=== PATIENT | female | born 1960 | race African-American/Black ===

== ENCOUNTER 2016-12-31 06:37 | Emergency (ER) | payer OTHER ==
[2016-12-31 07:18] VITALS: TEMP 98; BMI 23.7
[2016-12-31] MEDS ORDERED: KETOROLAC TROMETHAMINE 60 MG/2 ML VIAL IM ONE (07:31)
[2016-12-31] MEDS ORDERED: KETOROLAC TROMETHAMINE 60 MG/2 ML VIAL ONE (07:44)
--- NOTE | 2016-12-31 08:17 | PDOC ---
History of Present Illness - General Chief Complaint: Pain Stated Complaint: PAIN IN RIGHT FOOT Time Seen by Provider: 12/31/16 07:18 History Source: Patient Exam Limitations: No Limitations - History of Present Illness Initial Comments: 12/31/16 08:17 56-year-old female with complaints of right calf and right posterior or thigh pain for the past 2 weeks worsened with ambulation. 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 Patient states has no history of blood clots, recent surgeries, smoking history , recent travel, or skin discoloration. Patient also denies lower extremity edema or recent injury to the affected area. patient has no complaints of cough or shortness of breath. Timing/Duration: intermittent Severity: moderate Associated Symptoms: reports: denies symptoms Past History - Past Medical History Allergies/Adverse Reactions: Allergies Allergy/AdvReac Type Severity Reaction Status Date / Time No Known Allergies Allergy Verified 12/31/16 07:07 Home Medications: Ambulatory Orders Ciprofloxacin [Cipro (Restricted To Id)] 500 mg PO Q12H 11/03/15 Ibuprofen [Motrin -] 400 mg PO QID PRN #28 tablet 11/03/15 - Immunization History Immunization Up to Date: Yes - Psycho/Social/Smoking Cessation Hx Anxiety: No Suicidal Ideation: No Smoking Status: No Smoking History: Never smoked Have you smoked in the past 12 months: No Number of Cigarettes Smoked Daily: 0 Information on smoking cessation initiated: No Hx Alcohol Use: No Drug/Substance Use Hx: No Substance Use Type: None Patient Lives Alone: No Lives with/in: spouse/SO Review of Systems - Review of Systems Able to Perform ROS?: Yes Constitutional: No: Symptoms Reported Respiratory: No: Symptoms reported Musculoskeletal: Yes: Muscle Pain. No: Joint Pain, Joint Swelling Integumentary: No: Symptoms Reported Neurological: No: Symptoms reported Hematologic/Lymphatic: No: Symptoms Reported *Physical Exam - Vital Signs Last Vital Signs Temp Pulse Resp BP Pulse Ox 98 F 62 18 131/75 99 12/31/16 07:07 12/31/16 07:07 12/31/16 07:07 12/31/16 07:07 12/31/16 07:07 - Physical Exam General Appearance: Yes: Nourished, Appropriately Dressed. No: Apparent Distress HEENT: positive: EOMI Respiratory/Chest: positive: Lungs Clear, Normal Breath Sounds. negative: Respiratory Distress, Accessory Muscle Use Cardiovascular: positive: Regular Rhythm, Regular Rate. negative: Murmur Musculoskeletal: negative: Vertebral Tenderness Extremity: positive: Normal Capillary Refill, Normal Inspection, Normal Range of Motion, Tender (posterior calf, posterior patella, and right hamstring. No palpable mass. No edema no deformity. ), Calf Tenderness (positive Homans). negative: Erythema Integumentary: positive: Normal Color, Warm, Moist. negative: Swelling, Ecchymosis Neurologic: positive: Motor Strength 5/5 (ambulatory with limp) ED Treatment Course - RADIOLOGY Radiology Studies Ordered: Category Date Time Status DUPLEX VASCUL US-1 LEG [US] Stat Ultrasound 12/31/16 07:31 Ordered - Medications Given in the ED: ED Medications Discontinued Medications Generic Name Dose Route Start Last Admin Trade Name Freq PRN Reason Stop Dose Admin Ketorolac Tromethamine 60 mg 12/31/16 07:31 12/31/16 07:48 Toradol Injection - IM 12/31/16 07:32 60 mg ONCE ONE Administration Medical Decision Making - Medical Decision Making 12/31/16 08:00 Patient with intermittent right leg pain mainly in the posterior aspect of her calf and hamstring. Patient has not taken anything for the above and states is worse with ambulation but denies any other complaints at this time. Patient was PERC negative. Patient was ordered for Toradol and a duplex of the lower extremity due to positive Homans sign . 12/31/16 09:54 DVT study negative. States feeling moderate relief with medicine. Patient will be recommended to follow-up with her PCP to consider further management. Otherwise patient may take Motrin and apply heat to the affected area. *DC/Admit/Observation/Transfer Diagnosis at time of Disposition: Pain of right lower extremity - Discharge Dispostion Disposition: HOME Condition at time of disposition: Good - Patient Instructions Printed Discharge Instructions: DI for Leg Pain, DI for Muscle Strain Additional Instructions: Please take Motrin 600 Milligrams every 8 hours for discomfort and apply heat to the affected area. Please up with her PCP to consider other options if pain continues. The ultrasound today was negative for DVT or acute findings - Post Discharge Activity Work/School Note: Back to Work
[2016-12-31 10:26] VITALS: BP 128/76; PULSE 67
== END 2016-12-31 10:30 | disposition home or self-care (01) ==
LOC: JER 06:37
PROC: 3E0233Z Introduction of Anti-inflammatory into Muscle, Percutaneous Approach (ICD-10-PCS; principal; 2016-12-31)
DX: M79.604 Pain in right leg (principal)
CPT/HCPCS: 93971-TC; 99282-25

== ENCOUNTER 2019-12-01 09:09 | Emergency (ER) | payer OTHER ==
[2019-12-01 09:29] VITALS: BP 171/84; PULSE 69; TEMP 98.1; BMI 25.1
[2019-12-01] MEDS ORDERED: IBUPROFEN 600 MG TABLET (FP) PO ONE (10:11)
--- NOTE | 2019-12-01 10:42 | PDOC ---
History of Present Illness - General Chief Complaint: Cold Symptoms Stated Complaint: COLD SYMPTOMS Time Seen by Provider: 12/01/19 09:30 History Source: Patient Exam Limitations: No Limitations Past History - Travel Traveled outside of the country in the last 30 days: No Close contact w/someone who was outside of country & ill: No - Past Medical History Allergies/Adverse Reactions: Allergies Allergy/AdvReac Type Severity Reaction Status Date / Time No Known Allergies Allergy Verified 12/31/16 07:07 Home Medications: Ambulatory Orders Ciprofloxacin [Cipro (Restricted To Id)] 500 mg PO Q12H 11/03/15 Ibuprofen [Motrin -] 400 mg PO QID PRN #28 tablet 11/03/15 Ipratropium [place] 30 ml NS BID #1 bottle 12/01/19 Pseudoephedrine HCl 30 mg PO Q6H #21 tablet 12/01/19 COPD: No Thyroid Disease: No - Immunization History Immunization Up to Date: Yes - Psycho Social/Smoking Cessation Hx Smoking Status: No Smoking History: Never smoked Have you smoked in the past 12 months: No Number of Cigarettes Smoked Daily: 0 Information on smoking cessation initiated: No Hx Alcohol Use: No Drug/Substance Use Hx: No Substance Use Type: None Review of Systems - Review of Systems Able to Perform ROS?: Yes Comments:: 12/01/19 10:56 CONSTITUTIONAL: Absent: fever, chills, diaphoresis, generalized weakness, malaise, loss of appetite HEENT: Present: Nasal congestion, sore throat. Absent: rhinorrhea, throat swelling, difficulty swallowing, mouth swelling, ear pain, eye pain, visual Changes CARDIOVASCULAR: Absent: chest pain, loss of consciousness, palpitations, irregular heart rate, peripheral edema RESPIRATORY: Absent: cough, shortness of breath, dyspnea with exertion, orthopnea, wheezing, stridor, hemoptysis MUSCULOSKELETAL: Absent: myalgia, arthralgia, joint swelling SKIN: Absent: rash, itching, pallor NEUROLOGIC: Absent: headache, focal weakness or paresthesias, dizziness, unsteady gait, seizure, mental status changes, bladder or bowel incontinence PSYCHIATRIC: Absent: anxiety, depression, suicidal or homicidal ideation, hallucinations. Is the patient limited [place] proficient: No *Physical Exam - Vital Signs Last Vital Signs Temp Pulse Resp BP Pulse Ox 98.1 F 69 17 171/84 H 99 12/01/19 09:26 12/01/19 09:26 12/01/19 09:26 12/01/19 09:26 12/01/19 09:26 - Physical Exam 12/01/19 10:57 GENERAL: The patient is awake, alert, and fully oriented, in no acute distress. HEAD: Normal with no signs of trauma. EYES: Pupils equal, round and reactive to light, extraocular movements intact, sclera anicteric, conjunctiva clear. HEENT: No nasal congestion or rhinorrhea. No sinus Tenderness. Mucous membranes are moist. No tonsillar erythema, exudate or edema. Uvula is midline. No TM bulging, dullness or erythema EXTREMITIES: Normal range of motion, no edema. NEUROLOGICAL: Normal speech, normal gait. PSYCH: Normal mood, normal affect. SKIN: Warm, Dry, normal turgor, no rashes or lesions noted. Medical Decision Making - Medical Decision Making 12/01/19 10:57 The patient is a 58-year-old female no past medical history who presents to the ER today for congestion and sore throat for 3 days. She states the congestion started on Wednesday and the sore throat followed the next day. She states she feels like she is a drip running down the back of her throat. She is been taking DayQuil and NyQuil with some relief of her symptoms. 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 Denies fevers, chills, body aches, cough, nausea, vomiting and diarrhea. She did receive a flu shot this year. A/P: Nasal congestion On exam throat is without erythema, exudate or edema. Patient with mild nasal congestion noted. Postnasal drip also noted on exam. Rapid strep is negative. We will treat with Sudafed, Cepacol drops. Patient's blood pressures elevated from triage. Will have patient follow-up with her primary care doctor. Likely sore throat due to postnasal drip. Discharge home. I discussed the physical exam findings, ancillary test results and final diagnoses with the patient. I answered all of the patient's questions. The patient was satisfied with the care received and felt comfortable with the discharge plan and treatment plan. The Patient agrees to follow up with the primary care physician/specialist within 24-72 hours. Return precautions were given. Discharge - Discharge Information Problems reviewed: Yes Clinical Impression/Diagnosis: Nasal congestion Pharyngitis Qualifiers: Pharyngitis/tonsillitis etiology: other specified organisms Qualified Code(s): J02.8 - Acute pharyngitis due to other specified organisms Condition: Stable Disposition: HOME - Admission No - Follow up/Referral Referrals: Kwabena Booker MD [Staff Physician] - - Patient Discharge Instructions Patient Printed Discharge Instructions: DI for Viral Upper Respiratory Infection -- Adult Additional Instructions: You were evaluated for your sore throat today. Your rapid strep test was negative. Your pain is most likely due to a postnasal drip. Please use the nasal spray to help with your congestion as directed. You may take Sudafed every 8 hours as needed for congestion. You may buy Cepacol drops. These are [id number]. They help with throat pain. Follow-up with your primary care doctor this week. Return to the ER for fevers, difficulty swallowing, changes in your voice, worsening pain, lightheadedness or if you have any changes in your symptoms. - Post Discharge Activity Work/Back to School Note: Back to Work
== END 2019-12-01 11:15 | disposition home or self-care (01) ==
LOC: JERFT 09:09
DX: R09.81 Nasal congestion (principal); J02.8 Acute pharyngitis due to other specified organisms
CPT/HCPCS: 87070; 87880; 99281-25

== ENCOUNTER 2021-06-30 07:06 | Emergency (ER) | payer OTHER ==
[2021-06-30 07:30] VITALS: BP 138/73; PULSE 93; TEMP 97.8; BMI 25.1
== END 2021-06-30 08:30 | disposition home or self-care (01) ==
LOC: JER 07:06
DX: J06.9 Acute upper respiratory infection, unspecified (principal)
CPT/HCPCS: 71046-TC-FY; 99284-25; C9803; U0003; U0005